=== PATIENT | female | born 1970 | race Caucasian/White ===

== ENCOUNTER 2017-12-09 11:58 | Emergency (ER) | payer MEDICAID ==
[~2017-12-09] VITALS: Ht 162.6 cm; Wt 59.9 kg
[2017-12-09 12:10] VITALS: BP 134/89
== END 2017-12-09 13:32 | disposition home or self-care (01) ==
LOC: ER 11:58
DX: S83.91XA Sprain of unspecified site of right knee, initial encounter (principal); X50.0XXA Overexertion from strenuous movement or load, initial encounter; Y93.89 Activity, other specified; Y99.8 Other external cause status; Y92.89 Other specified places as the place of occurrence of the external cause
CPT/HCPCS: 73562